=== PATIENT | male | born 1935 | race Caucasian/White ===

== ENCOUNTER → 2017-09-04 14:00 | Outpatient (CLI) | payer OTHER, MEDICARE, SELFPAY ==
--- NOTE | 2017-09-04 | LYMN_PTH ---
PATIENT: EMIR HERMOSILLO LOC: [facility] U#:[id number] AGE/SX: 89/M ROOM: RE09/04/[address]: Dr. 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 See comment. CARL:madan 6/12/18 COMMENT Immunohistochemistry ([id number]) supports the above diagnosis and non-contributory for primary site of origin. Clinical correlation and appropriate follow up are necessary. This case is discussed with Dr. Niño on 09/09/17. Case has been reviewed in consultation with Dr. Lang who concurs with the above diagnosis. IDC:AM MICROSCOPIC DESCRIPTION Slides are reviewed. GROSS DESCRIPTION Received in fixative is one container labeled with the patient's name and designated left lymph node biopsy supraclavicular. The specimen consists of multiple elongated pieces of newman soft tissue that in aggregate measure 1 x 0.5 x 0.1 cm. The specimen is totally submitted in one cassette. / CARL:madan 09/07/17 TC:0 CPT: 17820
--- NOTE | 2017-09-04 | IMM_PTH ---
PATIENT: EMIR HERMOSILLO LOC: [facility] U#:[id number] AGE/SX: 89/M ROOM: RE09/04/[address]: Dr. Zehra Niño MD : 1935 BED: DIS: SPEC #: [id number] RECD: 09/08/17 11:00 STATUS: BRO [facility]TA #: [id number] JYOTHI: 09/04/17 00:[address]: Zehra Niño DEPT: IMMUNOHISTOCHEMISTRY RECD BY: Christin Pagan Tissues: Supraclavicular region of neck Procedures: RCC (add) NAPSIN A (add) CK20 (add) CK5-6 (add) CK7 (add) CK8 (add) HEP PAR (add) P16 (add) PSA (add) TTF1 (add) Pankeratin (initial) P40 (add) PHYSICIAN & INSTITUTION [place] [id number] SPECIMEN INFORMATION: Tissue Source: Left supraclavicular lymph node, needle core biopsy Clinical Info: Enlarged lymph node, lung cancer Specimen Number: [id number] CPT code: 59485, 31592 x11 METHODOLOGY: Deparaffinized sections of prefer/formalin-fixed tissue or PAP/DQ stained slides are incubated with monoclonal/polyclonal antibodies/oligonucleotide probes. Localization is made via biotin free immunoperoxidase method. Appropriate controls are performed and reacted as expected. Results on target cell population are indicated in the following table: RESULTS: ANTIBODY / CLONE RESULT AE1-3 (AE1/AE3/PCK26) positive CK7 (OV-TL12/30) positive, focal CK8 (21mpeeC46) positive, focal and weak CK20 (KS20.8) negative TTF-1 (8G7G3/1) negative Napsin A (Rabbit Polyclonal) negative HepPar (OCh1E5) positive, see comment. RCC (PN-15) negative PSA (ER-PR8) negative CK5-6 (D5 & 1684) negative P16 (E6H4) negative P40 (BC28) negative These tests were developed and their performance characteristics determined by [facility]. They may not have been cleared or approved by the [place]. Food and Drug Administration. The FDA has determined that such clearance or approval is not necessary. INTERPRETATION: Left supraclavicular lymph node, needle core biopsy: Poorly differentiated metastatic non-small cell carcinoma with extensive necrosis, favor adenocarcinoma. SJ:madan 6/13/18 Comment: IHC is non-contributory for primary site of origin. HepPar staining may represents non-specific staining. Case has been reviewed in consultation with Dr. Lang who concurs with the above diagnosis. IDC:AM
--- NOTE | 2017-09-04 14:00 | DT_ITS ---
This patient was seen during an EMR downtime August 31, 2017 - September 07, 2017. This patient may have a combination of paper and electronic documentation or all paper documentation. All documentation is viewable within the e-chart portion of [employer] for each patient visit.
== END ==
PROVIDERS: Visit Provider Surgery
DX: R59.0 Localized enlarged lymph nodes (principal)
CPT/HCPCS: 88305; 88341; 88342